=== PATIENT | female | born 1985 | race Two or more races ===

== ENCOUNTER 2023-07-05 07:00 | Day surgery (SDC) | payer OTHER ==
[~2023-07-05] VITALS: Ht 157.5 cm; Wt 136.1 kg
[~2023-07-05 07:00] MED LIST: BREZTRI AEROS10.7 GM IH; NORVASC5 MG PO; PROAIR RESPICL90 MCG IH; TOPROL XL25 M1 PO
== END 2023-07-05 17:55 | disposition home or self-care (01) ==
LOC: CIR.AMB 07:00
PROVIDERS: ATTEND Student in an Organized Health Care Education/Training Program
DX: D06.9 Carcinoma in situ of cervix, unspecified (principal); Z91.013 Allergy to seafood; Z20.822 Contact with and (suspected) exposure to COVID-19